=== PATIENT | male | born 2000 | race Caucasian/White ===

== ENCOUNTER 2024-12-07 11:17 | Emergency (ER) | payer OTHER ==
[2024-12-07] MEDS: Diphtheria,Pertussis(Acell),Tetanus Vaccine 0.5 ML Syringe IM ONE (12:00)
[2024-12-07] MEDS: Lidocaine 1% 20 ML MDV INJECT ONE (12:01)
== END 2024-12-07 13:15 | disposition home or self-care (01) ==
LOC: JD.ED 11:17
DX: S61.512A Laceration without foreign body of left wrist, initial encounter (principal); W20.8XXA Other cause of strike by thrown, projected or falling object, initial encounter
CPT/HCPCS: 12001; 12002; 73090-26-LT; 73090-LT; 73110-26-LT; 73110-LT; 73140-26-FA; 73140-FA; 90471; 90715; 99282; 99283-25; J3490